=== PATIENT | male | born 1995 ===

== ENCOUNTER 2016-10-16 20:17 | Emergency (ER) | payer BC ==
[2016-10-16 20:42] VITALS: BP 112/64; PULSE 78; RESP 18; TEMP 99.8; O2SAT 99
--- NOTE | 2016-10-16 21:16 | ED PDOC ---
HPI: CCC, URI, Sore Throat Time Seen by Provider: 10/16/16 20:50 Chief Complaint (Nursing): ENT Problem Chief Complaint (Provider): ENT Problem History Per: Patient History/Exam Limitations: no limitations Onset/Duration Of Symptoms: Days (x2) Associated Symptoms: Sore Throat. denies: Cough, Nasal Congestion Additional Complaint(s): Bret Rich, 21 year old male presents to the ED on 10/16/16 for sore throat without cough or congestion for 2 days prior to arrival. The patient has taken Advil, without relief. The patient does have a tactile fever. He denies throat swelling, shortness of breath, rash, abdominal pain, any recent sick contacts, or any recent trauma. Past Medical History Reviewed: Historical Data, Nursing Documentation, Vital Signs Vital Signs: Last Vital Signs Temp 99.8 F H 10/16/16 20:36 Pulse 78 10/16/16 20:36 Resp 18 10/16/16 20:36 BP 112/64 10/16/16 20:36 Pulse Ox 99 10/16/16 21:21 - Medical History PMH: No Chronic Diseases - Family History Family History: States: Hypertension - Home Medications Home Medications: Ambulatory Orders Medication Instructions Recorded Amoxicillin/Clavulanate [Augmentin 1 tab PO BID #19 tab 06/10/16 875 MG-125 MG] Ibuprofen [Motrin] 600 mg PO TID PRN #30 tab 06/10/16 Penicillin VK [Pen-Vee K] 500 mg PO Q6 #40 tab 10/16/16 - Allergies Allergies/Adverse Reactions: Allergies Allergy/AdvReac Type Severity Reaction Status Date / Time No Known Allergies Allergy Verified 07/12/14 12:19 Review of Systems Constitutional: Positive for: Fever (tactile). Negative for: Other (no recent trauma or sick contacts) ENT: Positive for: Other (sore throat). Negative for: Nose Congestion, Throat Swelling Respiratory: Negative for: Cough, Shortness of Breath Gastrointestinal: Negative for: Abdominal Pain Skin: Negative for: Rash Physical Exam - Reviewed Nursing Documentation Reviewed: Yes Vital Signs Reviewed: Yes - Physical Exam Appears: Positive for: Non-toxic, No Acute Distress Head Exam: Positive for: ATRAUMATIC, NORMOCEPHALIC Skin: Positive for: Normal Color, Warm, Dry. Negative for: Rash Eye Exam: Positive for: Normal appearance ENT: Positive for: Pharyngeal Erythema, Tonsillar Exudate. Negative for: Tonsillar Swelling Neck: Positive for: Normal Cardiovascular/Chest: Positive for: Regular Rate, Rhythm, Chest Non Tender Respiratory: Positive for: Normal Breath Sounds. Negative for: Respiratory Distress Gastrointestinal/Abdominal: Positive for: Normal Exam, Soft. Negative for: Tenderness Back: Positive for: Normal Inspection Extremity: Positive for: Normal ROM Neurologic/Psych: Positive for: Alert, Oriented (x3) - ECG O2 Sat by Pulse Oximetry: 99 (RA) Pulse Ox Interpretation: Normal Medical Decision Making Medical Decision Makin:13 Initial Impression: Sore Throat without cough or congestion. Initial Plan: * Throat Culture Stat * Reevaluation Scribe Attestation: Documented by Perla Whatley, acting as a scribe for Jovani Cardenas PA-C. Provider Scribe Attestation: All medical record entries made by the Scribe were at my direction and personally dictated by me. I have reviewed the chart and agree that the record accurately reflects my personal performance of the history, physical exam, medical decision making, and the department course for this patient. I have also personally directed, reviewed, and agree with the discharge instructions and disposition. Disposition - Clinical Impression Clinical Impression: Pharyngitis - Patient ED Disposition Is Patient to be Admitted: No - Disposition Referrals: [facility] [Outside] Disposition Time: 22:40 Condition: STABLE Prescriptions: Penicillin VK [Pen-Vee K] 500 mg PO Q6 #40 tab Instructions: Pharyngitis (ED) Print Language: LITHUANIAN
== END 2016-10-16 21:30 | disposition home or self-care (01) ==
LOC: H.ER 20:17
DX: R05 Cough (principal); J02.9 Acute pharyngitis, unspecified

== ENCOUNTER 2017-04-01 12:38 | Emergency (ER) | payer BC ==
[2017-04-01 12:45] VITALS: BP 139/70; PULSE 73; RESP 16; TEMP 99.8; O2SAT 99
--- NOTE | 2017-04-01 13:19 | ED PDOC ---
HPI: CCC, URI, Sore Throat Time Seen by Provider: 04/01/17 12:45 Chief Complaint (Nursing): ENT Problem Chief Complaint (Provider): Throat pain History Per: Patient History/Exam Limitations: no limitations Onset/Duration Of Symptoms: Days (2) Current Symptoms Are (Timing): Still Present Additional Complaint(s): Patient is a 21 y/o male with no significant past medical history presenting to the emergency department for throat pain and a mild headache ongoing for two days. Denies sick contacts, fever, rash, or other complaints. PCP: none provided. Past Medical History Reviewed: Historical Data, Nursing Documentation, Vital Signs Vital Signs: Last Vital Signs Temp 99.8 F H 04/01/17 12:42 Pulse 73 04/01/17 12:42 Resp 16 04/01/17 12:42 BP 139/70 04/01/17 12:42 Pulse Ox 99 04/01/17 13:22 - Surgical History Other surgeries: Cardiac surgery - Family History Family History: States: Unknown Family Hx, Hypertension - Social History Current smoker - smoking cessation education provided: No Ex-Smoker (has not smoked in the last 12 months): No Alcohol: None Drugs: Denies - Home Medications Home Medications: Ambulatory Orders Medication Instructions Recorded Amoxicillin/Clavulanate [Augmentin 1 tab PO BID #19 tab 06/10/16 875 MG-125 MG] Ibuprofen [Motrin] 600 mg PO TID PRN #30 tab 06/10/16 Penicillin VK [Pen-Vee K] 500 mg PO Q6 #40 tab 10/16/16 Ibuprofen [Motrin] 600 mg PO Q8 PRN #21 tab 04/01/17 - Allergies Allergies/Adverse Reactions: Allergies Allergy/AdvReac Type Severity Reaction Status Date / Time No Known Allergies Allergy Verified 04/01/17 12:42 Review of Systems ROS Statement: Except As Marked, All Systems Reviewed And Found Negative Constitutional: Negative for: Fever ENT: Positive for: Throat Pain Skin: Negative for: Rash Neurological: Positive for: Headache (mild) Physical Exam - Reviewed Nursing Documentation Reviewed: Yes Vital Signs Reviewed: Yes - Physical Exam Appears: Positive for: Well, Non-toxic, No Acute Distress Head Exam: Positive for: ATRAUMATIC, NORMAL INSPECTION, NORMOCEPHALIC Skin: Positive for: Normal Color, Warm, Dry ENT: Positive for: Other (small papillary regions by uvula). Negative for: Pharyngeal Erythema, Tonsillar Exudate Neck: Positive for: Normal Cardiovascular/Chest: Positive for: Regular Rate, Rhythm Respiratory: Positive for: Normal Breath Sounds. Negative for: Accessory Muscle Use, Respiratory Distress Extremity: Positive for: Normal ROM Neurologic/Psych: Positive for: Alert, Oriented (x3) - ECG O2 Sat by Pulse Oximetry: 99 (RA) Pulse Ox Interpretation: Normal - Progress ED Course And Treament: rapid strep: neg Medical Decision Making Medical Decision Making: Time: 13:04 Initial impression: Sore throat Initial plan: Rapid Strep Test ~ Scribe Attestation: Documented by April Shepard, acting as a scribe for CLAIRE Blue. Provider Scribe Attestation: All medical record entries made by the Scribe were at my direction and personally dictated by me. I have reviewed the chart and agree that the record accurately reflects my personal performance of the history, physical exam, medical decision making, and the department course for this patient. I have also personally directed, reviewed, and agree with the discharge instructions and disposition. Disposition - Clinical Impression Clinical Impression: Viral pharyngitis - Patient ED Disposition Is Patient to be Admitted: No - Disposition Referrals: [facility] [Outside] Disposition: Routine/Home Disposition Time: 14:06 Condition: FAIR Prescriptions: Ibuprofen [Motrin] 600 mg PO Q8 PRN #21 tab PRN Reason: Pain, Moderate (4-7) Instructions: Pharyngitis (ED) Forms: [employer] ([place]anese), [facility] ED School/Work Excuse
== END 2017-04-01 14:36 | disposition home or self-care (01) ==
LOC: H.ER 12:38
DX: J02.9 Acute pharyngitis, unspecified (principal)